=== PATIENT | male | born 1990 | race Caucasian/White ===

== ENCOUNTER → 2022-09-10 10:04 | Outpatient (BNVA) | payer MEDICAID, SELFPAY | PROVIDERS: PCP Internal Medicine; Visit Provider Urology | DX: L73.9 Follicular disorder, unspecified (principal); N52.9 Male erectile dysfunction, unspecified; R68.82 Decreased libido | CPT/HCPCS: 99202 ==

== ENCOUNTER 2023-02-14 08:59 | Outpatient (REF) | payer MEDICAID, SELFPAY ==
[2023-02-18 17:13] LABS: Testosterone, Free 72.1 pg/mL (35.0-155.0); Testosterone, Total 355 ng/dL (250-1100)
== END 2023-02-14 09:00 | disposition home or self-care (01) ==
LOC: HO.LAB 08:59
PROVIDERS: PCP Internal Medicine; Visit Provider Nurse Practitioner Family
DX: N52.9 Male erectile dysfunction, unspecified (principal); R68.82 Decreased libido
CPT/HCPCS: 36415; 84402; 84403

== ENCOUNTER 2023-02-28 13:48 | Outpatient (AMB) | payer MEDICAID, SELFPAY ==
--- NOTE | 2023-02-28 13:58 | A.OFFVIS_ITS ---
Intake Intake Visit Reasons: Testosterone(Lab?) Intake Note: Patient is present for erectile dysfunction/folliculitis/labs (testosterone 355) Urology Medication: folliculitis treated w/ doxycycline/ tadalafil Blood Thinner: none Lift Operator Required: No Accompanied by: Self / Same As Patient Allergies No Known Allergies Allergy (Verified 02/28/23 14:18) Medication List - Last Reconciled 02/28/23 by MAGALI AndersonP-BC dextroamphetamine-amphetamine 30 mg ER (Adderall XR) 1 cap PO QAM doxycycline hyclate 100 mg PO DAILY 90 days fenofibrate micronized 90 mg PO DAILY hydroxyzine HCl 10 - 20 mg PO BID PRN iloperidone (Fanapt) 8 mg PO DAILY iloperidone (Fanapt) 12 mg PO BEDTIME lorazepam 0.5 mg PO TID PRN olanzapine 2.5 mg PO BEDTIME propranolol ER 60 mg PO QAM tadalafil 5 mg PO DAILY 90 days HPI HPI Comments History of Present Illness Details García is a pleasant 32 year old male patient of . He has a past medical history of ADHD, drug induced pulmonary hypertension, obesity, schizophrenia, and sleep apnea. He presents to the office today for a follow up of his low libido and scrotal folliculitis. In discussion with the patient today he reports ongoing issues with numbness to his penis and scrotal area. He reports he has been working with his psychiatrist to switch his psychological medications as he believes these are contributing to his urological issues. He reports compliance with low-dose Cialis 5 mg daily and this has been working well for his low libido however continues with numbness to his penis and scrotum as mentioned above. He denies any issues with his urination. Recent testosterone results reviewed with the patient today 03/06-- total testosterone 355 free testosterone 72.1. During assessment of the patient today no folliculits noted in the area (penis, testicles, scrotum, perineum, and or bilateral groin area). Penis is circumcised and testicles/the scrotum within normal limits. No open areas, drainage, and or lesions noted. Patient does report being able to obtain and maintain his erections however feels at times he has issues with climax due to decreased sensation to this area. He discusses not currently being in a relationship. Discussed at length side effects of SSRIs in relation to urological issues patient is reporting. Patient discusses wanting to have workup for infertility as he is worried this will be an issue for him with his psychological medications he is taking however states he is unsure how he will proceed with workup when he does not have any form of ejaculate upon orgasm due to the side effects of his psych medications. Reassurance provided. Discussed and stressed at length SSRI medications can make it difficult to become arouse, sustain arousal, and reach orgasm. Discussed some individuals who take SSRIs are unable to have an orgasm at all. [facility] Medical History ADHD Drug-induced pulmonary hypertension Obesity Schizophrenia Sleep apnea Review of Systems Const Reports as per HPI Eyes Reports no additional complaints ENT Reports no additional complaints Card Reports as per HPI Resp Reports no additional complaints GI Reports no additional complaints Reports as per HPI Musc Reports no additional complaints Neuro Reports as per HPI Psych Reports as per HPI Endo Reports no additional complaints Syd/Lymph Reports no additional complaints Aller/Immun Reports no additional complaints Physical Exam Const General: cooperative, healthy appearing, comfortable, no acute distress, well developed, alert and awake Orientation/consciousness: patient oriented x3 Limitations: no limitations HEENT Head: Yes normal to inspection, Yes normocephalic and Yes atraumatic Eyes General: appearance normal, both eyes and all related structures Neck Neck: Yes normal visual inspection and Yes trachea midline Chest Chest palpation & inspection: normal inspection of the chest Cardio Rate: regular rate GI Inspection: Yes normal to inspection General: Yes no CVA tenderness Male General Exam: Yes normal external exam Penis: circumcised Meatus: meatus normal Scrotum: scrotum normal Testes: Testes normal Back/Spine/Pelvis Back: no CVA tenderness Skin General skin exam: no rashes or lesions noted Neuro General: patient oriented x3 Extrem General: Yes normal to inspection Psych Appearance: grossly normal Speech and movement: Clear speech present (at times slow to respond ) Affect: Other affect and mood findings present (flat; avoids eye contact ) Attitude: Avoids eye contact (attititude/behavior) Thought process: Perseverating thought process present Thought content: Normal thought content present Insight: Fair insight present (Psych) Judgement: Fair judgement present (Psych) Results AMB Urinalysis, Automated UA Leukoctes 0 [place]/uL Last Edit by Jb Neal on 02/28/23 14:18 UA Nitrite Negative Last Edit by Brandyce Bress on 02/28/23 14:18 UA Urobilinogen 0.2 mg/dL Last Edit by Brandyce Bress on 02/28/23 14:18 UA Protein 0 mg/dL Last Edit by Brandyce Bress on 02/28/23 14:18 UA pH 6.5 Last Edit by Brandyce [employer]ulse [employer] on 02/28/23 14:18 UA Blood 0 John/uL Last Edit by Brandyce [employer]ulse [employer] on 02/28/23 14:18 UA Specific [place] 1.005 Last Edit by [email or web address] [employer] on 02/28/23 14:18 UA Ketone Negative Last Edit by Elli Healthe [employer] on 02/28/23 14:18 UA Bilirubin 0 mg/dL Last Edit by Elli Healthe [employer] on 02/28/23 14:18 UA Glucose 0 mg/dL Last Edit by [email or web address] [email or web address] on 02/28/23 14:18 Results Reviewed Results Reviewed: Laboratory Last Values Urine pH (Auto) 6.5 02/28/23 14:00 Specific [place] (Auto) 1.005 02/28/23 14:00 Urine Protein (Auto) 0 mg/dL 02/28/23 14:00 Glucose (UA)(Auto) 0 mg/dL 02/28/23 14:00 Urine Ketones (Auto) Negative 02/28/23 14:00 Urine Blood (Auto) 0 John/uL 02/28/23 14:00 Urine Nitrite (Auto) Negative 02/28/23 14:00 Urine Bilirubin (Auto) 0 mg/dL 02/28/23 14:00 Urine Urobilinogen (Auto) 0.2 mg/dL 02/28/23 14:00 Leukocyte Esterase (Auto) 0 [place]/uL 02/28/23 14:00 Assessment & Plan Assessment & Plan (1) Low libido: Code(s): R68.82 - Decreased libido (2) Erectile dysfunction: Code(s): N52.9 - Male erectile dysfunction, unspecified (3) Retrograde ejaculation: Code(s): N53.14 - Retrograde ejaculation Plan In office urinalysis results reviewed with the patient today; as noted above. Recent testosterone and free testosterone results reviewed with the patient today Patient reports significant improvement in libido with 5 mg of Cialis daily; will continue Discussed at length effects of SSRI's in realtion to urological issues. Will obtain FSH, LH, prolactin, FSH BG, free T4, TSH, and testosterone free and total for further assessment and evaluation as patient continues to report issues with sensation (numb penis and testicles/scrotum) Will obtain scrotal ultrasound for further assessment and evaluation Follow up in 1-2 months with imaging and labs to be completed prior; or sooner with any issues, concerns, and or questions. Orders: Orders Follicle Stimulating Hormone 02/28/23 R68.82 - Decreased libido Lutenizing Hormone 02/28/23 R68.82 - Decreased libido Prolactin 02/28/23 R6.82 - Decreased libido Sex Hormone Binding Globulin 02/28/23 R6.82 - Decreased libido Free T4 (Free Thyroxine) 02/28/23 R6.82 - Decreased libido Testosterone, Free/Total 02/28/23 R6.82 - Decreased libido Thyroid Stimulating Hormone 02/28/23 R68.82 - Decreased libido TSH reflex Free T4 02/28/23 R68.82 - Decreased libido US scrotum 02/28/23 N52.9 - Male erectile dysfunction, unspecified, 8.82 - Decreased libido AMB Urinalysis Automated 02/28/23 Z13.9 - Encounter for screening, unspecified Coding Level of Care Code Est Pt Level 3 (69542) Diagnoses Low libido .82 Erectile dysfunction N52.9 Retrograde ejaculation N53.14
== END 2023-02-28 14:34 | disposition home or self-care (01) ==
PROVIDERS: Visit Provider Nurse Practitioner Family
DX: R68.82 Decreased libido (principal); N52.9 Male erectile dysfunction, unspecified; N53.14 Retrograde ejaculation
CPT/HCPCS: 99213

== ENCOUNTER → 2023-02-28 13:48 | Outpatient (BNVA) | payer MEDICAID, SELFPAY | PROVIDERS: Visit Provider Nurse Practitioner Family | DX: N52.9 Male erectile dysfunction, unspecified (principal); R68.82 Decreased libido; N53.14 Retrograde ejaculation | CPT/HCPCS: 99213 ==

== ENCOUNTER 2023-03-18 15:33 | Outpatient (REF) | payer MEDICAID, SELFPAY ==
--- NOTE | ~2023-03-18 | US_ITS ---
EXAMINATION: US SCROTUM CLINICAL INFORMATION: Decreased libido. COMPARISON: None available. TECHNIQUE: A sonogram of the scrotum was performed assessing mcdonnell-scale appearance and color Doppler flow. Spectral Doppler analysis of the arterial and venous flow were performed in the testes bilaterally. FINDINGS: RIGHT: Right testicle measures 4.2 x 2.5 x 2.4 cm, volume 13.4 mL. No focal testicular parenchymal lesions are visualized. Spectral Doppler analysis of the arterial and venous flow is normal in the right testis. Right epididymal head is normal in size. There are small epididymal head cysts versus spermatoceles, the largest measuring 5 mm. Right epididymal Doppler flow is normal. No right varicocele is seen. There is a very small hydrocele. LEFT: Left testicle measures 4.2 x 2.3 x 2.7 cm, volume 13.5 mL. No focal testicular parenchymal lesions are visualized. Spectral Doppler analysis of the arterial and venous flow is normal in the left testis. Left epididymal head is normal in size. There are 5 mm and 5 mm epididymal head cysts versus spermatoceles. Left epididymal Doppler flow is normal. No left varicocele is seen. There is a very small hydrocele. A 3 mm ovoid extratesticular calcification (scrotal mike) is seen. US/US scrotum IMPRESSION: 1. There are very small bilateral hydroceles. 2. A 3 mm left extratesticular calcifications (scrotal mike) is seen. 3. There are small bilateral epididymal head cysts versus spermatoceles.
== END 2023-03-18 15:34 | disposition home or self-care (01) ==
LOC: HO.US 15:33
PROVIDERS: Visit Provider Nurse Practitioner Family
DX: N52.9 Male erectile dysfunction, unspecified (principal); R68.82 Decreased libido
CPT/HCPCS: 76870

== ENCOUNTER 2023-06-20 10:04 | Outpatient (REF) | payer MEDICAID, SELFPAY ==
[2023-06-20 11:31] LABS: MANUAL DIFF FLAG NO
[2023-06-20 11:38] LABS: Basophils Absolute Auto 0.1 X10*3/uL (0.0-0.2); Basophils Percent Auto 0.9 % (0-2); Eosinophils Absolute Auto 0.3 X10*3/uL (0.0-0.4); Eosinophils Percent Auto 4.2 % (0-4); Hemoglobin 15.8 g/dl (14.0-18.0); Imm Gran Abs Auto 0.02 X10*3/uL (0.00-0.03); Imm Gran Pct Auto 0.3 % (0.0-0.4); Lymphocytes Absolute Auto 1.6 X10*3/uL (1.2-4.9); Lymphocytes Percent Auto 23.4 % (20-40); Mean Corpuscular HGB Conc 33.6 g/dl (31.0-36.0); Mean Corpuscular Hemoglobin 28.5 pg (27.0-33.0); Mean Corpuscular Volume 84.8 fL (80.0-98.0); Mean Platelet Volume 9.8 fL (9.4-12.4); Monocytes Absolute Auto 0.5 X10*3/uL (0.1-1.2); Monocytes Percent Auto 7.9 % (2-11); Neutrophils Absolute Auto 4.3 x10*3/uL (2.0-8.3); Neutrophils Percent Auto 63.3 % (45-73); Platelet Count 320 X10*3/uL (160-400); Red Blood Count 5.54 X10*6/uL (4.60-5.80); Red Cell Distribution Width 12.4 % (11.0-16.0); White Blood Count 6.8 X10*3/uL (4.8-10.8)
[2023-06-20 11:42] LABS: Estimated Average Glucose 94 mg/dL; Hemoglobin A1c % 4.9 % (<6.0)
[2023-06-20 12:11] LABS: Alanine Aminotransferase 22 U/L (0-40); Albumin Level 4.3 g/dL (3.5-5.0); Alkaline Phosphatase 52 U/L (39-117); Anion Gap 11 (12-20); Aspartate Amino Transferase 19 U/L (5-37); Bilirubin Direct 0.2 mg/dL (0.0-0.5); Bilirubin Total 0.6 mg/dL (0.0-1.0); Blood Urea Nitrogen 12 mg/dL (9-16); Calcium 9.1 mg/dL (8.4-10.2); Carbon Dioxide 27 mmol/L (22-29); Chloride 106 mmol/L (96-108); Cholesterol 185 mg/dL (<200); Estimated Glomerular Filt Rate > 60; Glucose Random 90 mg/dL (60-115); HDL Cholesterol 40 mg/dL (>40); LDL Cholesterol Calculated 103 mg/dL (<100); Potassium 4.1 mmol/L (3.3-5.1); Sodium 140 mmol/L (135-145); Total Protein 6.7 g/dL (6.5-8.0); Triglycerides 213 mg/dL (<150); Vitamin D 25-OH Total 84.2 ng/mL (>30)
== END 2023-06-20 10:05 | disposition home or self-care (01) ==
LOC: HO.HHCL 10:04
PROVIDERS: Visit Provider Internal Medicine
DX: Z00.00 Encounter for general adult medical examination without abnormal findings (principal)
CPT/HCPCS: 36415; 80048; 80061; 80076; 82306; 83036; 85025

== ENCOUNTER 2024-06-25 16:14 | Outpatient (REF) | payer MEDICAID, SELFPAY ==
[2024-06-25 17:17] LABS: MANUAL DIFF FLAG NO
[2024-06-25 17:33] LABS: Basophils Absolute Auto 0.1 X10*3/uL (0.0-0.2); Basophils Percent Auto 0.8 % (0-2); Eosinophils Absolute Auto 0.5 X10*3/uL (0.0-0.4); Eosinophils Percent Auto 5.2 % (0-4); Hematocrit 45.1 % (42.0-52.0); Imm Gran Abs Auto 0.03 X10*3/uL (0.00-0.03); Imm Gran Pct Auto 0.3 % (0.0-0.4); Mean Corpuscular HGB Conc 35.5 g/dl (31.0-36.0); Mean Corpuscular Hemoglobin 29.1 pg (27.0-33.0); Mean Corpuscular Volume 82.1 fL (80.0-98.0); Mean Platelet Volume 9.8 fL (9.4-12.4); Monocytes Absolute Auto 0.8 X10*3/uL (0.1-1.2); Monocytes Percent Auto 8.5 % (2-11); Neutrophils Absolute Auto 5.6 x10*3/uL (2.0-8.3); Neutrophils Percent Auto 63.2 % (45-73); Platelet Count 314 X10*3/uL (160-400); Red Blood Count 5.49 X10*6/uL (4.60-5.80); Red Cell Distribution Width 12.2 % (11.0-16.0); White Blood Count 8.9 X10*3/uL (4.8-10.8)
[2024-06-25 17:36] LABS: Alanine Aminotransferase 42 U/L (0-40); Albumin Level 4.2 g/dL (3.5-5.0); Alkaline Phosphatase 41 U/L (39-117); Anion Gap 9 (12-20); Aspartate Amino Transferase 49 U/L (5-37); Bilirubin Total 0.6 mg/dL (0.0-1.0); Blood Urea Nitrogen 13 mg/dL (9-16); Calcium 9.4 mg/dL (8.4-10.2); Carbon Dioxide 27 mmol/L (22-29); Chloride 107 mmol/L (96-108); Cholesterol 201 mg/dL (<200); Estimated Glomerular Filt Rate > 60; Glucose Random 100 mg/dL (60-115); HDL Cholesterol 32 mg/dL (>40); Potassium 3.9 mmol/L (3.3-5.1); Sodium 139 mmol/L (135-145); Total Protein 6.7 g/dL (6.5-8.0); Triglycerides 501 mg/dL (<150)
[2024-06-26 08:25] LABS: HIV AB/AG Nonreactive (Nonreactive); HIV Num 1 0.06 S/CO (0.00-0.99); ~HepC Num1 0.11 S/CO (0.00-0.79); ~Hepatitis C Antibody Nonreactive (Nonreactive)
== END 2024-06-25 16:15 | disposition home or self-care (01) ==
LOC: HO.HHCL 16:14
PROVIDERS: Visit Provider Internal Medicine
DX: Z00.00 Encounter for general adult medical examination without abnormal findings (principal)
CPT/HCPCS: 36415; 80053; 80061; 85025; 86803; 87389

== ENCOUNTER 2024-11-16 14:39 | Outpatient (REF) | payer MEDICAID, SELFPAY ==
--- OUTSIDE RECORDS SUMMARY | 2024-11-16 16:13 | XMS_ITS | Encounter Summary ---
Author Organization [facility] Address [address] [place] [address] Phone Care Team Providers Care Registered Dietitian Name Role Phone Name, Mich JONES Primary Care Provider [phone] Encounter Details Date Type Department Care Team (Late st Contact Info) Description 09/30/2024 Transcribe Orders [facility] [address] [place], [place] [id number] Carmen Catalan, JAREK [address] [place] [address] Decreased libido (Primary Dx) Social History Tobacco Use Types Packs/Day Years Used Date Smoking Tobacco: Never Assessed Education Answer Date Recorded Are you interested in more education? Not on ange e 09/30/2024 Are you concerned about learning? Not on file 09/30/2024 No 09/30/2024 No 09/30/2024 Digital Access Answer Date Recorded No 09/30/2024 No 09/30/2024 Reliable internet access at home? Not on file 09/30/2024 Device with a working camera? Not on file Sex and Gender Information Value Date Recorded Sex Assigned at Not on file Gender Identity Not on file Sexual Orientation Not on file documented as of this encounter Plan of Treatment Pending Results Name Type Priority Associated Diagnoses Date /Time Testosterone, total and free Lab Routine Decreased libido 09/30/2024 12:46 PM EST documented as of this encounter Results * (ABNORMAL) TSH with reflex (09/30/2024 12:46 PM EST) SCREENING PANEL: TSH 0.52(L) 0.55 - 4.78 uIU/mL [facility] Blood 09/30/2024 12:4 6 PM EST 09/30/2024 12:54 PM EST Carmen Catalan [facility] LAB BLOOD ORDERABLES Performing Organization Address City/[facility]/ZIP Co de Phone Number [facility] [address] [place] [address] * (ABNORMAL) Sex hormone binding globulin (09/30/2024 12:46 PM EST) SEX HORMONE BIND GLOB 11.9(L) 13.3 - 89.5 nmol/L [facility] [address] Blood 09/30/2024 12:4 6 PM EST 09/30/2024 12:54 PM EST Carmen Catalan [employer]T[facility] LAB BLOOD ORDERABLES Performing Organization Address [facility] Co mt Phone Number [facility] [place] [address] * Prolactin (09/30/2024 12:46 PM EST) PROLACTIN 7.2 2.1 - 17.7 ng/mL [facility] Blood 09/30/2024 12:4 6 PM EST 09/30/2024 12:54 PM EST Carmen Catalan [employer] LAB BLOOD ORDERABLES Performing Organization Address City/[facility] Co de Phone Number [facility] [address] [place] [address] * LH (09/30/2024 12:46 PM EST) LH 3.5 1.5 - 9.3 IU/L [facility] Blood 09/30/2024 12:4 6 PM EST 09/30/2024 12:54 PM EST Carmen Catalan [employer] LAB BLOOD ORDERABLES Performing Organization Address City/[facility] Co de Phone Number [facility] [address] [place] [address] * Free T4 (09/30/2024 12:46 PM EST) FREE T4 1.3 0.9 - 1.8 ng/dL [facility] Blood 09/30/2024 12:4 6 PM EST 09/30/2024 12:54 PM EST Carmen Catalan [employer] [employer] LAB BLOOD ORDERABLES Performing Organization Address City/[facility] Co de Phone Number [facility] [address] [place] [address] * FSH (09/30/2024 12:46 PM EST) FSH 3.3 1.4 - 18.4 IU/L [facility] Blood 09/30/2024 12:4 6 PM EST 09/30/2024 12:54 PM EST Carmen Catalan [facility] LAB BLOOD ORDERABLES Performing Organization Address [facility] Co de Phone Number [facility] [address] [place] [address] documented in this encounter Visit Diagnoses Diagnosis Decreased libido- Primary documented in this encounter Care Teams Registered Dietitian Relationship Specialty Start Date End Date Name, MD Mich [address] [place] [address] PCP - General 05/31/17 documented as of this encounter Additional Source Comments The information contained in this document represents components of the legal health record. It is not the complete legal health record.[facility]
--- OUTSIDE RECORDS SUMMARY | 2024-11-16 16:13 | XMS_ITS | Encounter Summary ---
Author Organization [employer] Address [address] [place] [address] [address] [place] [address] Care Team Providers Care Director Of Pulmonary Unit Name Role Phone Yazmin Boston MD Primary Care Provide r Reason for Referral * Consultation (Routine) - Authorized Specialty Diagnoses / Procedures Referred By Contac t Referred To Contact Nutrition Diagnoses Hypertriglyceridemia Class 1 obesity due to excess calories without serious comorbidity with body mass index (BMI) of 34.0 to 34.9 in adult Yazmin Boston MD [address] [place] [address] Phone: tel: fax: Referral ID Status Reason Start Date Expiration Date Visits Requested Visits Authorized [id number] Authorized Consult and Treat 11/16/2024 11/16/2025 1 1 Reason for Visit * Reason Comments Follow-up Encounter Details Date Type Department Care Team (Latest Contact Info) Description 11/16/2024 2:00 PM EDT Office Visit [facility] [address] [place] [address] [phone] Yazmin Boston MD [address] [place] [address] [phone] Hypertriglyceridemia (Primary Dx); Class 1 obesity due to excess calories without serious comorbidity with body mass index (BMI) of 34.0 to 34.9 in adult; Bloating Social History Tobacco Use Types Packs/Day Years Used Date Smoking Tobacco: Never Passive Smoke Exposure: Never Smokeless Tobacco: Never Tobacco Cessation:Counseling Given: Not Answered Alcohol Use Standard Drinks/Week Comments Yes 0 (1 standard drink = 0.6 oz pur e alcohol) Socially Depression Answer Date Recorded Patient Health Questionnaire-9 Score 18 06/28/2024 Patient Health Questionnaire-9 Score 18 06/28/2024 Last PHQ-9: Questionnaire Data Not on file 1 08/28/2023 Housing Stability Answer Date Recorded What is your housing situation today? I have elayne erin 06/15/[address] you li ve. Do you have problems with any of the following? None of the above 06/15/2024 Food Insecurity Answer Date Recorded Within the past 12 months, y ou worried that your food would run out before you got money to buy more: Never True 06/15/2024 Within the past 12 months,th e food you bought just didn't last and you didn't have enough money to get more: Never True 08/2023 Transportation Answer Date Recorded In the past 12 months, has l ack of transportation kept you from medical appts, meetings, work or from getting things needed for daily living? No 06/15/2024 Utilities Answer Date Recorded In the past 12 months, has t he electric, gas, oil or water company threatened to shut off services in your home? No 06/15/2024 Depression Answer Date Recorded Patient Health Questionnaire-2 Score 5 06/28/2024 Internet Access Answer Date Recorded Internet Access Q1 Yes 06/15/2024 Internet Access Q2 Not on file 06/15/2024 Sex and Gender Information Value Date Recorded Sex Assigned at Male 06/14/2022 10:35 AM EDT Legal Sex Male 10:35 AM EDT Gender Identity Male 06/14/2022 10:35 AM EDT Sexual Orientation Straight 06/17/2023 3: 41 PM EDT documented as of this encounter Last Filed Vital Signs Vital Sign Reading Time Taken Comments Blood Pressure 139/86 11/16/2024 2:13 PM EDT Pulse 95 11/16/2024 2:13 PM EDT Temperature 36.2 ??C (97.1 ??F) 11/16/2024 2:13 PM ED T Respiratory Rate 16 11/16/2024 2:13 PM EDT Oxygen Saturation 97% 11/16/2024 2:13 PM EDT Inhaled Oxygen Concentration - - Weight 109 kg (240 lb) 11/16/2024 2:13 PM EDT Height 177.8 cm (5' 10 ) 11/16/2024 2:13 PM EDT Body Mass Index 34.44 11/16/2024 2:13 PM EDT documented in this encounter Plan of Treatment Scheduled Orders Name Type Priority Associated Diagnoses Orde r Schedule TSH W/Reflex to FT4 Lab Routine Class 1 obesity due to excess calories without serious comorbidity with body mass index (BMI) of 34.0 to 34.9 in adult Expected: 11/16/2024 (Approximate), Expires: 11/16/2025 Comprehensive Metabolic Panel Lab Routine Hypertriglyceridemia Class 1 obesity due to excess calories without serious comorbidity with body mass index (BMI) of 34.0 to 34.9 in adult Expected: 11/16/2024 (Approximate), Expires: 11/16/2025 Lipid Panel, Standard Lab Routine Hypertriglyceridemia Class 1 obesity due to excess calories without serious comorbidity with body mass index (BMI) of 34.0 to 34.9 in adult Expected: 11/16/2024 (Approximate), Expires: 11/16/2025 Scheduled Referrals Name Type Priority Associated Diagnoses Orde r Schedule Referral to Nutrition Therapy Outpatient Referral Routine Hypertriglyceridemia Class 1 obesity due to excess calories without serious comorbidity with body mass index (BMI) of 34.0 to 34.9 in adult Expected: 11/16/2024 (Approximate), Expires: 11/16/2025 documented as of this encounter Visit Diagnoses Diagnosis Hypertriglyceridemia- Primary Pure hyperglyceridemia Class 1 obesity due to excess calories without serious comorbidity with body mass index (BMI) of 34.0 to 34.9 in adult Bloating Flatulence, eructation, and gas pain documented in this encounter Additional Health Concerns Assessment Noted Time PHQ-9 Depression Total Score: 18 06/28/ 024 11:27 AM EST documented as of this encounter Care Teams Director Of Pulmonary Unit Relationship Specialty Start Date End Date Yazmin Boston MD [address] [place] [phone] PCP - General Family Medicine 07/19/19 documented as of this encounter
--- OUTSIDE RECORDS SUMMARY | 2024-11-16 16:13 | XMS_ITS | Clinical Summary ---
Author Organization [employer] Address [address] [place] [address] 7 [place] [address] Care Team Providers Care Logistics Operations Manager Name Role Phone Yazmin Boston MD Primary Care Provide r Allergies No known active allergies Medications Adderall XR 30 MG 24 hr capsule TAKE 1 CAPSULE BY MOUTH EVERY MORNING FOR ADD 12/23/19 23 Active cholecalcifero l (Vitamin D-3) 125 MCG (5000 UT) capsule Take 125 mcg by mouth in the morning. 11/25/19 23 Active hydrOXYzine HCl (Atarax) 10 MG tablet TAKE 1-2 TABLETS BY MOUTH TWICE A DAY NEEDED FOR ANXIETY 11/14/19 23 Active Fanapt 12 MG tablet Take 12 mg by mouth at bedtime. 11/30/19 23 Active Fanapt 8 MG tablet Take 8 mg by mouth in the morning. 12/15/19 23 Active LORazepam (Ativan) 0.5 MG tablet Take 0.5 mg by mouth if needed in the morning, at noon, and at bedtime. 11/24/19 23 Active OLANZapine (ZyPREXA) 2.5 MG tablet Take 1 tablet by mouth at bedtime. 10/20/19 23 Active propranolol LA (Inderal LA) 60 MG 24 hr capsule TAKE 1 CAPSULE BY MOUTH EVERY DAY IN THE MORNING 12/22/19 23 Active tadalafil (Cialis) 5 MG tablet TAKE 1 TABLET BY MOUTH ONCE DAILY FOR SEXUAL ACTIVITY 12/23/19 23 Active Blood Pressure Monitor kit Use as directed 3x/week 1 kit 01/05/20 23 Active fenofibrate micronized (Antara) 43 MG capsuleIndicat ions:Hypertrig lyceridemia Take 1 capsule (43 mg) by mouth with breakfast. 30 capsule 3 11/17/19 25 026 Active simethicone (Mylicon,Gas-X ) 180 MG capsuleIndicat ions:Bloating Take 1 capsule (180 mg) by mouth every 6 (six) hours if needed for flatulence. 180 capsule 11/17/19 25 Active famotidine (Pepcid) 20 MG tabletIndicati ons:Bloating Take 1 tablet (20 mg) by mouth 2 times daily. 60 tablet 1 11/17/19 25 026 Active fenofibrate micronized (Antara) 43 MG capsuleIndicat ions:Hypertrig lyceridemia Take 1 capsule (43 mg) by mouth with breakfast. 30 capsule 11 06/26/20 24 025 Discontinued(Re order (will not trigger notification to Pharmacy)) Active Problems Problem Noted Date Diagnosed Date Class 1 obesity due to exces s calories without serious comorbidity with body mass index (BMI) of 34.0 to 34.9 in adult 11/16/2024 Bloating 11/16/2024 Dermatitis 08/02/2024 Elevated LFTs 08/02/2024 Assessment & Plan (08/02/2024 3:07 PM EST): Hepatic panel will be recheck in 3-6 months after healthy diet and exercise is done On combination antipsychotic drug therapy 2023 Assessment & Plan (06/25/2024 5:29 PM EST): EKG ordered to monitor Qtc Encounter for preventive care 06/20/2023 Assessment & Plan (06/25/2024 5:28 PM EST): See HPI Sexual dysfunction 03/02/2023 Schizophrenia 03/02/2023 Assessment & Plan (06/20/2023 10:02 AM EST): Continue to follow up with psychiatrist Assessment & Plan (03/07/2023 10:29 AM EDT): Continue to follow with specialists Obstructive sleep apnea syndrome 03/02/2023 Folliculitis 03/02/2023 Assessment & Plan (06/25/2024 5:28 PM EST): Referral to dermatology as per patient's request Doxycycline 100mg BID Drug-induced hypotension 03/02/2023 Amnesia 03/02/2023 Adult attention deficit hyperactivity disorder 0 03/02/2023 Elevated blood-pressure read ing without diagnosis of hypertension 01/04/2023 Assessment & Plan (03/07/2023 10:29 AM EDT): Resolved Patient encourage to continue losing weight and low Na diet Anxiety 01/04/2023 Assessment & Plan (06/25/2024 5:28 PM EST): Counseling done f/u with specialist Assessment & Plan (03/07/2023 10:29 AM EDT): Controlled followed by specialist Atypical chest pain 01/04/2023 Hypertriglyceridemia 07/05/2021 Assessment & Plan (08/02/2024 3:08 PM EST): Fenofibrate 43mg daily re-started Counseling about healthy diet done Assessment & Plan (06/25/2024 5:29 PM EST): Today extensive discussion was done about life style modifications I advise healthy diet (low calorie) and cardiovascular exercise Lipid panel ordered currently not on fenofibrate Assessment & Plan (2023 3:57 PM EST): Today extensive discussion was done about life style modifications I advise healthy diet (low calorie) and cardiovascular exercise Patient was not able to fill his prescription I will send a different presentation today of fenofibrate Assessment & Plan (06/20/2023 10:02 AM EST): Lipid panel ordered today, labs will be review with patient on next appointment discussion was done about life style modifications I advise healthy diet (low calorie) and cardiovascular exercise Assessment & Plan (03/07/2023 10:30 AM EDT): fenofibrate renewed Today extensive discussion was done about life style modifications I advise healthy diet (low calorie) and cardiovascular exercise Overweight 12/26/2018 Other specified types of schizophrenia, unspecif ied state 12/26/2018 Attention deficit hyperactivity disorder 019 Encounters Date Type Department Care Team Description 11/16/2024 2:00 PM EDT Office Visit [facility] [address] [place] [phone] Yazmin Boston MD Hypertriglyceridemia (Primary Dx); Class 1 obesity due to excess calories without serious comorbidity with body mass index (BMI) of 34.0 to 34.9 in adult; Bloating 11/16/2024 Travel 11/08/2024 Patient Outreach [facility] [address] [place] [address] Yazmin Boston MD Pre-visit Planning (SDOH screening negative and tobacco screening negative) 10/31/[address] [address] Lucy Murdock RN NTTS f/up 10/26/2024 Population Health Risk Score [facility] Department [address] [phone] Provider, Population Health Generic 10/05/2024 Telephone [facility] [address] [place] [phone] Yazmin Boston MD NTTS 08/20/[address] [address] Cammy Marion, RN NTTS from Last 3 Months Immunizations Name Administration Dates Next Due Hep B Immune Globulin 03/29/2023 Hep B, adult 03/29/2023 Influenza Injectable Quadriv alant Preservative Free IIV4 MDCK 05/01/2022,05/15/2020 Influenza injectable quadriv alent preservative free 06/18/2021,05/12/2018 Influenza, seasonal, injecta ble, preservative free 06/25/2024 Pfizer Covid-19 Vaccine 12+ 06/25/2024,1 ,09/27/2020,2020 Tdap 06/20/2017 Social History Tobacco Use Types Packs/Day Years [...] your housing situation today? I have elayne khan 06/15/[address] you li [...] Orientation Straight 06/17/2023 3: 41 PM EDT Last Filed Vital Signs Vital Sign Reading [...] Mass Index 34.44 11/16/2024 2:13 PM EDT Plan of Treatment Health Maintenance Due Date Last Done Comments Alcohol/Substance Use Screening 2001 Family Planning (PISQ) 2004 Hepatitis B Vaccines (2 of 3 - 19+ 3-dose series) 04/26/2023 03/29/2023 Depression Monitoring (PHQ-9) 12/26/2024 06/28/2024, 06/28/2024 Depression Screening 06/28/2025 06/28/2024, 06/28/20 24 SDOH Screening 11/08/2025 11/08/2024 Tobacco Screening 11/16/2025 11/16/2024 DTaP/Tdap/Td Vaccines (2 - Td or Tdap) 06/20/2027 06/20/2017 Lipid Panel 06/25/2029 06/25/2024, 01/2023, 05/06/2022, Additional history exists Zoster Vaccines (1 of 2) 2039 RSV Patients and Patients Aged 60 years or older (1 - 1-dose 75+ series) 2064 COVID-19 Vaccine Completed 06/25/2024, 08/2022, 05/25/2022, Additional history exists HIV Screening Completed 06/25/2024 Hepatitis C Screening Completed 06/25/2024 Influenza Vaccine Completed 06/25/2024, , 05/01/2022, Additional history exists HIB Vaccines Aged Out No longer eligi ble based on patient's age to complete this topic HPV Vaccines Aged Out No longer eligi ble based on patient's age to complete this topic Hepatitis A Vaccines Aged Out No long er eligible based on patient's age to complete this topic IPV Vaccines Aged Out No longer eligi ble based on patient's age to complete this topic Meningococcal Vaccine Aged Out No rosas luzma eligible based on patient's age to complete this topic Pneumococcal Vaccine: Pediatrics (0 to 5 Years) and At-Risk Patients (6 to 49) Years) Aged Out No longer eligible based on patient's age to complete this topic RSV under 20 months Aged Out No longe r eligible based on patient's age to complete this topic Rotavirus Vaccines Aged Out No longer eligible based on patient's age to complete this topic Procedures Procedure Name Priority Date/Time Associated Diagnosis Comments HEPATITIS C AB W/REFL TO HCV RNA, QN, PCR Routine 06/25/2024 4:15 PM EST Encounter for preventive care HIV 1/2 ANTIGEN/ANTIBODY, FOURTH GENERATION W/RFL Routine 06/25/2024 4:15 PM EST Encounter for preventive care LIPID PANEL, STANDARD Routine 06/25/2024 4:15 PM EST Encounter for preventive care from Last 3 Months or Most Recently Relevant to Health Maintenance Results * Hepatitis C Antibody with Reflex to HCV, RNA, Quantitative, Real-Time PCR (06/25/2024 4:15 PM EST) Hepatitis C Antibody Nonreactive Nonreactive [facility] Comment:Antibodies to HCV no t detected; does not exclude early acuteHCV infection. Blood Venous blood specimen / Unknown 06/25/2024 4:15 PM EST 06/25/2024 5:12 PM EST us Yazmin Chaparro MD LAB BLOOD ORDERABLES Final Result [facility] [address] [place] [phone] * HIV-1/2 Antigen and Antibodies, Fourth Generation, with Reflexes (06/25/2024 4:15 PM EST) HIV AB/AG Nonreactive Nonreactive [facility] Comment:HIV-1 p24 Ag and/or HIV-1/HIV-2 Ab not detected.A test result that is nonreactive does not exclude thepossibility of exposure to or infection with HIV-1 and/orHIV-2. Nonreactive results in this assay for individualswith prior exposure to HIV-1 and/or HIV-2 may be due toantigen and antibody levels that are below the limit ofdetection of this assay.The MyEdu HIV Ag/Ab Combo assay result andsupplemental assay results should be interpreted inconjunction with the patient's clinical presentation,history and other laboratory results. If the results areinconsistent with clinical evidence, additional testing issuggested to confirm the result. Blood Venous blood specimen / Unknown 06/25/2024 4:15 PM EST 06/25/2024 5:12 PM EST us Yazmin Chaparro MD LAB BLOOD ORDERABLES Final Result [facility] [address] [place] [phone] * (ABNORMAL) Lipid Panel, Standard (06/25/2024 4:15 PM EST) Triglycerides 501(H) <150 mg/dL [facility] Comment:Desirable Triglyceri de: less than 150 mg/dLBorderline High Triglyceride 150-199 mg/dLHigh Triglyceride: 200-499 mg/dLVery High Triglyceride: greater than or equal to 5OO mg/dL Cholesterol 201(H) <200 mg/dL [facility] Comment:Desirable Cholestero l: less than 200 mg/dLBorderline High Cholesterol: 200-239 mg/dLHigh Cholesterol: greater than 239 mg/dL LDL Cholesterol Calculated TNP <100 mg/dL [facility] Comment:Unable to calculate the LDL. The formula of Friedwald,Lewis, and Feroz is only valid if the triglycerides areless than 400 mg/dl. HDL Cholesterol 32(L) >40 mg/dL [facility] Comment:Desirable HDL: great er than 40 mg/dL Note: This HDL assay may give artificially low results in patients with liver disease. Blood Venous blood specimen / Unknown 06/25/2024 4:15 PM EST 06/25/2024 5:12 PM EST us Yazmin Chaparro MD LAB BLOOD ORDERABLES Final Result [facility] [address] [place] [phone] from Last 3 Months or Most Recently Relevant to Health Maintenance Insurance [facility] C3 HSN FULL Care Teams Logistics Operations Manager Relationship Specialty Start Date End Date Yazmin Boston MD [address] [place] [phone] PCP - General Family Medicine 07/19/19
--- OUTSIDE RECORDS SUMMARY | 2024-11-16 16:13 | XMS_ITS | Clinical Summary ---
Author Organization [facility] [email or web address] [facility] lin Address [address] [facility] [employer] [address] Care Team Providers Care Care Clinician Name Role Phone Unavailable Primary Care Provider Unavailabl e Social History Tobacco Use Types Packs/Day Years Used Date Smoking Tobacco: Never Assessed Sex and Gender Information Value Date Recorded Sex Assigned at Not on file Legal Sex Male 8:39 PM EDT Gender Identity Not on file Sexual Orientation Not on file Plan of Treatment Health Maintenance Due Date Last Done Comments Depression: Screening Annual ly using PHQ-2/9 in Adults 18 yrs or above (or HM Modifier)([facility]) 1989 Hepatitis C Virus Infection in Adolescents and Adults: Screening (or Modifier) ([facility]) 2007 SDOH Screening Reminder: Jhoana tashalljuanita for all adults ([facility]) 2007 Tobacco Smoking Cessation: i n Adults excluding Women: Behavioral and Pharmacotherapy Interventions ([facility]) 2007 DTaP/Tdap/Td Vaccines ([facility]) (1 - Tdap) 2008 Lipid Screening: Once for Me n aged 20 to 35 yrs ([facility]) 2009 COVID-19 Vaccine Screening: Initial Series and Booster Status ([facility]) ( - 2023- season) 2024 Flu Vaccination: Yearly for ages 18mos through 64 years (or Modifier)([facility]) 03/15/2025 Zoster/Shingles Vaccine Seri es Screening: Adults aged 18+ yrs (or HM Modifiers)([facility]) (1 of 2) 2039 Pneumococcal Vaccination Scr eening: Pts 0-19 & 19-49 yrs of age ([facility]) Aged Out No longer eligible based on patient's age to complete this topic [employer] Not on file Insurance [facility]
--- OUTSIDE RECORDS SUMMARY | 2024-11-16 16:13 | XMS_ITS | Encounter Summary ---
Author Organization [employer] Address [address] [place] [address] 7 [place] [address] Care Team Providers Care Speech Language Therapist Name Role Phone Yazmin Boston MD Primary Care Provide r Encounter Details Date Type Department Care Team (Latest Contact Info) Description 03/18/2023 Orders Only [facility] [address] [place], [place] [phone] Yazmin Boston MD [address] [place] [address] Hypertriglyceridemia (Primary Dx) Social History Tobacco Use Types Packs/Day Years Used Date Smoking Tobacco: Never Passive Smoke Exposure: Never Smokeless Tobacco: Never Depression Answer Date Recorded Patient Health Questionnaire-9 Score 0 03/07/2023 Depression Answer Date Recorded Patient Health Questionnaire-2 Score 0 03/07/2023 Sex and Gender Information Value Date Recorded Sex Assigned at Male 06/14/2022 10:35 AM EDT Legal Sex Male 10:35 AM EDT Gender Identity Male 06/14/2022 10:35 AM EDT Sexual Orientation Straight 06/17/2023 3: 41 PM EDT documented as of this encounter Plan of Treatment Not on file documented as of this encounter Visit Diagnoses Diagnosis Hypertriglyceridemia- Primary Pure hyperglyceridemia documented in this encounter Additional Health Concerns Assessment Noted Time PHQ-9 Depression Total Score: 0 03/07/20 9:52 AM EDT documented as of this encounter Care Teams Speech Language Therapist Relationship Specialty Start Date End Date Yazmin Boston MD [address] [place] [phone] PCP - General Family Medicine 07/19/19 documented as of this encounter
--- OUTSIDE RECORDS SUMMARY | 2024-11-16 16:13 | XMS_ITS | Clinical Summary ---
Author Organization [facility] Address [address] [place] [phone] Phone Care Team Providers Care Picker Feeder Name Role Phone Name, Mich JONES Primary Care Provider [phone] Encounters Date Type Department Care Team Description 09/30/2024 12:27 PM EST - 09/30/2024 11:59 PM EST Hospital Encounter [facility] [address] [place] [address] Carmen Catalan NP Discharge Disposition: Home or Self Care 09/30/2024 Transcribe Orders [facility] [address] [place] [address] Carmen Catalan NP Decreased libido (Primary Dx) from Last 3 Months Social History Tobacco Use Types Packs/Day Years [...] on file Sexual Orientation Not on file Last Filed Vital Signs Vital Sign Reading Time Taken Comments Blood Pressure 124/68 04/18/2015 1:03 AM EDT Pulse 113 04/18/2015 1:03 AM EDT Temperature 36.3 ??C (97.3 ??F) 04/18/2015 1:03 AM ED T Respiratory Rate - - Oxygen Saturation - - Inhaled Oxygen Concentration - - Weight 97.6 kg (215 lb 3.2 oz) 04/18/2015 1:03 A M EDT Height 180.3 cm (5' 11 ) 04/18/2015 1:03 AM EDT Body Mass Index 30.01 04/18/2015 1:03 AM EDT Plan of Treatment Not on file [employer] Devices Not on file Procedures Procedure Name Priority Date/Time Associated Diagnosis Comments TSH WITH REFLEX Routine 09/30/2024 12:46 PM EST Decreased libido TESTOSTERONE, TOTAL AND FREE Routine 09/30/2024 12:46 PM EST Decreased libido SEX HORMONE BINDING GLOBULIN Routine 09/30/2024 12:46 PM EST Decreased libido PROLACTIN Routine 09/30/2024 12:46 PM EST Decreased libido LH Routine 09/30/2024 12:46 PM EST Decreased libido FREE T4 Routine 09/30/2024 12:46 PM EST Decreased libido FSH Routine 09/30/2024 12:46 PM EST Decreased libido from Last 3 Months Results * (ABNORMAL) Sex hormone binding globulin (09/30/2024 12:46 PM EST) Pathologist [facility] SEX HORMONE BIND GLOB 11.9(L) 13.3 - 89.5 nmol/L [facility] Blood 09/30/2024 12:4 6 PM EST 09/30/2024 12:54 PM EST Carmen Catalan [facility] BLOOD ORDERABLES [facility] [address] [place] [address] * (ABNORMAL) TSH with reflex (09/30/2024 12:46 PM EST) Pathologist [facility] SCREENING PANEL: TSH 0.52(L) 0.55 - 4.78 uIU/mL [facility] Blood 09/30/2024 12:4 6 PM EST 09/30/2024 12:54 PM EST Carmen Catalan [facility] BLOOD ORDERABLES Performing Organization Address City/[facility] Co de Phone Number [facility] [address] [place] [address] * Prolactin (09/30/2024 12:46 PM EST) PROLACTIN 7.2 2.1 - 17.7 ng/mL [facility] Blood 09/30/2024 12:4 6 PM EST 09/30/2024 12:54 PM EST Carmen Catalan [facility] BLOOD ORDERABLES Performing Organization Address [facility] de Phone Number [facility] [address] [place] [address] * Free T4 (09/30/2024 12:46 PM EST) FREE T4 1.3 0.9 - 1.8 ng/dL [facility] Blood 09/30/2024 12:4 6 PM EST 09/30/2024 12:54 PM EST Carmen Catalan [facility] BLOOD ORDERABLES Performing Organization Address [facility] de Phone Number [facility] [address] [place] [address] * LH (09/30/2024 12:46 PM EST) LH 3.5 1.5 - 9.3 IU/L [facility] Blood 09/30/2024 12:4 6 PM EST 09/30/2024 12:54 PM EST Carmen Catalan [facility] BLOOD ORDERABLES Performing Organization Address [facility] Co de Phone Number [facility] [address] [place] [address] * FSH (09/30/2024 12:46 PM EST) FSH 3.3 1.4 - 18.4 IU/L [facility] Blood 09/30/2024 12:4 6 PM EST 09/30/2024 12:54 PM EST Carmen Catalan [facility] BLOOD ORDERABLES Performing Organization Address City/State/[facility] Co de Phone Number [facility] [address] [place] [address] from Last [address] [place] [address] García Licea Personal/Family Self [address] [place] [address] [address] [place] [address] García Licea Personal/Family Self [address] [place] [address] [address] [place] [address] García Licea Personal/Family Self [address] [place] [address] [address] [place] [address] García Licea Personal/Family Self [address] [place] [address] [address] [place] [address] García Licea Personal/Family Self [address] [place] [address] [address] [place] [address] García Licea Personal/Family Self [address] [place] [address] [address] [place] [address] García Licea Personal/Family Self 1990 [address] [place] [address] García Licea Personal/Family Self 1990 [address] [place] [address] Care Teams Picker Feeder Relationship Specialty Start Date End Date Name, MD Mich [address] [place] [address] PCP - General 05/31/17 Additional Source Comments The information contained in this document represents components of the legal health record. It is not the complete legal health record.[facility]
--- OUTSIDE RECORDS SUMMARY | 2024-11-16 16:13 | XMS_ITS | Encounter Summary ---
Author Organization [employer] Address [address] [facility] 7 [place] [address] Care Team Providers Care Filtration Operator Name Role Phone Yazmin Boston MD Primary Care Provide r Encounter Details Date Type Department Care Team ([facility] st Contact Info) Description 09/20/2023 Telephone Health Benefits [address] [place] [address] Yazmin Boston MD [address] [place] [address] Social History Tobacco Use Types Packs/Day Years Used Date Smoking Tobacco: Never Passive Smoke Exposure: Never Smokeless Tobacco: Never Alcohol Use Standard Drinks/Week Comments Yes 0 (1 standard drink = 0.6 oz pur e alcohol) Socially Depression Answer Date Recorded Patient Health Questionnaire-9 Score 0 03/07/2023 Housing Stability Answer Date Recorded What is your housing situation today? I have elayne khan 06/10/[address] you li ve. Do you have problems with any of the following? None of the above 06/10/2023 Food Insecurity Answer Date Recorded Within the past 12 months, y ou worried that your food would run out before you got money to buy more: Never True 06/10/2023 Within the past 12 months,th e food you bought just didn't last and you didn't have enough money to get more: Never True Transportation Answer Date Recorded In the past 12 months, has l ack of transportation kept you from medical appts, meetings, work or from getting things needed for daily living? No 06/10/2023 Utilities Answer Date Recorded In the past 12 months, has t he electric, gas, oil or water company threatened to shut off services in your home? No 06/10/2023 Depression Answer Date Recorded Patient Health Questionnaire-2 [...] documented as of this encounter Visit Diagnoses Not on filedocumented in this encounter Additional Health Concerns Assessment Noted Time PHQ-9 Depression Total Score: 0 03/07/20 23 9:52 AM EDT documented as of this encounter Care Teams Filtration Operator Relationship Specialty Start Date End Date Yazmin Boston MD [address] [place] [phone] PCP - General Family Medicine 07/19/19 documented as of this encounter
--- OUTSIDE RECORDS SUMMARY | 2024-11-16 16:13 | XMS_ITS | Encounter Summary ---
Author Organization [employer] Address [address] [facility] 7t [place] [address] Care Team Providers Care County Nurse Name Role Phone Yazmin Boston MD Primary Care Provide r Encounter Details Date Type Department Care Team (Latest Contact Info) Description 11/16/2024 Travel Social History Tobacco Use Types Packs/Day Years [...] Noted Time PHQ-9 Depression Total Score: 18 024 11:27 AM EST documented as of this encounter Care Teams County Nurse Relationship Specialty Start Date End Date Yazmin Boston MD [address] [place] [address] PCP - General Family Medicine 07/19/19 documented as of this encounter
[2024-11-16 16:44] LABS: Alanine Aminotransferase 61 U/L (0-40); Albumin Level 4.3 g/dL (3.5-5.0); Alkaline Phosphatase 41 U/L (39-117); Anion Gap 10 (12-20); Aspartate Amino Transferase 35 U/L (5-37); Bilirubin Total 0.7 mg/dL (0.0-1.0); Blood Urea Nitrogen 12 mg/dL (9-16); Calcium 9.1 mg/dL (8.4-10.2); Carbon Dioxide 24 mmol/L (22-29); Chloride 109 mmol/L (96-108); Cholesterol 181 mg/dL (<200); Estimated Glomerular Filt Rate > 60; Glucose Random 79 mg/dL (60-115); HDL Cholesterol 28 mg/dL (>40); Potassium 3.7 mmol/L (3.3-5.1); Sodium 139 mmol/L (135-145); Total Protein 6.4 g/dL (6.5-8.0); Triglycerides 476 mg/dL (<150)
[2024-11-16 16:55] LABS: Free T4 (Free Thyroxine) 0.96 ng/dL (0.71-1.85)
[2024-11-16 17:00] LABS: TSH reflex Free T4 0.83 uIU/mL (0.32-4.0); Thyroid Stimulating Hormone 0.83 uIU/mL (0.32-4.0)
[2024-11-17 07:03] LABS: Follicle Stimulating Hormone 3.5 mIU/mL (1.4-12.8); Lutenizing Hormone 3.1 mIU/mL (1.5-9.3); Sex Hormone Binding Globulin 14 nmol/L (10-50)
[2024-11-23 16:13] LABS: Testosterone, Free 83.8 pg/mL (35.0-155.0); Testosterone, Total 345 ng/dL (250-1100)
== END 2024-11-16 14:40 | disposition home or self-care (01) ==
LOC: HO.HHCL 14:39
PROVIDERS: Nurse Practitioner Family; Visit Provider Internal Medicine
DX: E78.1 Pure hyperglyceridemia (principal); E66.811 Obesity, class 1; E66.09 Other obesity due to excess calories; R68.82 Decreased libido; Z68.34 Body mass index [BMI] 34.0-34.9, adult
CPT/HCPCS: 36415; 80053; 80061; 83001; 83002; 84146; 84270; 84402; 84403; 84439; 84443

== ENCOUNTER 2024-12-26 09:12 | Outpatient (REF) | payer MEDICAID, SELFPAY ==
--- NOTE | ~2024-12-26 | US_ITS ---
EXAMINATION: US ABDOMEN HISTORY: Elevated LFTs TECHNIQUE: Real-time grayscale ultrasound imaging of the abdomen was performed and images were reviewed. COMPARISON: There are no prior studies for comparison. FINDINGS: Liver: The right lobe of the liver measures 17.3 cm in size. The left lobe of the liver measures 12.2 cm in size. The liver demonstrates increased echotexture, consistent with steatosis. No focal mass or intrahepatic biliary ductal dilatation is identified. There is normal hepatopedal flow in the portal vein. Gallbladder and biliary tree: The gallbladder is unremarkable, without evidence of calculi, wall thickening, or pericholecystic fluid. There is no sonographic Hidalgo sign. The common bile duct is normal in caliber measuring 5 mm. Kidneys: The right kidney measures 11.7 cm in length. The left kidney measures 12.5 cm in length. The kidneys are unremarkable, without evidence of masses, hydronephrosis, or calculi. Pancreas: The pancreatic head, neck, and body are unremarkable. The pancreatic tail is obscured by bowel gas. Spleen: The spleen is normal in size and contour, measuring 12.2 cm in length. Abdominal aorta and inferior vena cava: The visualized portions of the abdominal aorta and inferior vena cava are normal in caliber. There is no free fluid in the abdomen. US/US abdomen complete IMPRESSION: Hepatomegaly and hepatic steatosis. Electronically signed by: Elgin Uriostegui MD 12/26/2024 09:50 AM EDT
--- OUTSIDE RECORDS SUMMARY | 2024-12-26 09:40 | XMS_ITS | Encounter Summary ---
Author Organization [employer] Address [address] [facility] 7t [place] [address] Care Team Providers Care Carpenter Supervisor Name Role Phone Yazmin Boston MD Primary Care Provide r Encounter Details Date Type Department Care Team ([facility] st Contact Info) Description 09/20/2023 Telephone Health Benefits [address] [place] [address] Yazmin Boston MD [address] [place] [address] Social History Tobacco Use Types Packs/Day Years [...] as of this encounter Plan of Treatment Upcoming Encounters Date Type Department Care Team (Late st Contact Info) Description 12/28/2024 10:45 AM EDT Office Visit [facility] MEDICINE [address] [place] [address] Pam Reeves MD [address] [place] [address] 12/28/2024 1:00 PM EDT Nutrition [facility] DIABETES/NUTRITION [address] [place] [address] Soo Scanlon, RD [address] [place] [address] documented as of this encounter Visit Diagnoses Not on filedocumented in this encounter Additional Health Concerns Assessment Noted Time PHQ-9 Depression Total Score: 0 03/07/20 23 9:52 AM EDT documented as of this encounter Care Teams Carpenter Supervisor Relationship Specialty Start Date End Date Yazmin Boston MD [address] [place] [phone] PCP - General Family Medicine 07/19/19 documented as of this encounter
--- OUTSIDE RECORDS SUMMARY | 2024-12-26 09:40 | XMS_ITS | Encounter Summary ---
Author Organization [employer] Address [address] [place] [address] 7t [place] [address] Care Team Providers Care Director Corporate Security Name Role Phone Yazmin Boston MD Primary Care Provide r Encounter Details Date Type Department Care Team (Latest Contact Info) Description 03/18/2023 Orders Only [facility] MEDICINE [address] [place] [address] [phone] Yazmin Boston MD [address] [place] [address] [phone] Hypertriglyceridemia (Primary Dx) Social History Tobacco Use [...] Description 12/28/2024 10:45 AM EDT Office Visit [facility] MEDICINE [address] [place] [phone] Pam Reeves MD [address] [place] [address] [phone] 12/28/2024 1:00 PM EDT Nutrition [facility] DIABETES/NUTRITION [address] [place], [place] [phone] Soo Scanlon RD [address] [place], [place] [phone] documented as of this encounter Visit Diagnoses Diagnosis Hypertriglyceridemia- Primary Pure hyperglyceridemia documented in this encounter Additional Health Concerns Assessment Noted Time PHQ-9 Depression Total Score: 0 03/07/20 23 9:52 AM EDT documented as of this encounter Care Teams Director Corporate Security Relationship Specialty Start Date End Date Yazmin Boston MD [address] [place], [place] [phone] PCP - General Family Medicine 07/19/19 documented as of this encounter
--- OUTSIDE RECORDS SUMMARY | 2024-12-26 09:40 | XMS_ITS | Clinical Summary ---
Author Organization [email or web address] Address [address] [place] [address] 7t [place] [address] Care Team Providers Care Watch Inspector Name Role Phone Yazmin Boston MD Primary Care Provide r Allergies No known active allergies Medications Adderall XR 30 MG 24 hr capsule TAKE 1 CAPSULE BY MOUTH EVERY MORNING FOR ADD 12/22/2022 Active cholecalciferol (Vitamin D-3) 125 MCG (5000 UT) capsule Take 125 mcg by mouth in the morning. 11/24/2022 Active hydrOXYzine HCl (Atarax) 10 MG tablet TAKE 1-2 TABLETS BY MOUTH TWICE A DAY NEEDED FOR ANXIETY 11/13/2022 Active Fanapt 12 MG tablet Take 12 mg by mouth at bedtime. 11/29/2022 Active Fanapt 8 MG tablet Take 8 mg by mouth in the morning. 12/14/2022 Active LORazepam (Ativan) 0.5 MG tablet Take 0.5 mg by mouth if needed in the morning, at noon, and at bedtime. 11/23/2022 Active OLANZapine (ZyPREXA) 2.5 MG tablet Take 1 tablet by mouth at bedtime. 10/19/2022 Active propranolol LA (Inderal LA) 60 MG 24 hr capsule TAKE 1 CAPSULE BY MOUTH EVERY DAY IN THE MORNING 12/21/2022 Active tadalafil (Cialis) 5 MG tablet TAKE 1 TABLET BY MOUTH ONCE DAILY FOR SEXUAL ACTIVITY 12/22/2022 Active Blood Pressure Monitor kit Use as directed 3x/week 1 kit 01/04/2023 Active fenofibrate micronized (Antara) 43 MG capsuleIndicati ons:Hypertrigly ceridemia Take 1 capsule (43 mg) by mouth with breakfast. 30 capsule 3 11/16/2024 11/17/19 26 Active simethicone (Mylicon,Gas-X) 180 MG capsuleIndicati ons:Bloating Take 1 capsule (180 mg) by mouth every 6 (six) hours if needed for flatulence. 180 capsule 11/16/2024 Active famotidine (Pepcid) 20 MG tabletIndicatio ns:Bloating Take 1 tablet (20 mg) by mouth 2 times daily. 60 tablet 1 11/16/2024 11/17/19 26 Active Active Problems Problem Noted Date Diagnosed Date Class 1 obesity due to exces s calories without serious comorbidity with body mass index (BMI) of 34.0 to 34.9 in adult 11/16/2024 Assessment & Plan (11/16/2024 4:36 PM EDT): Extensive counseling about healthy diet and exercise on today I will refer patient to screening unit registered nurse Blood work will be ordered patient will be contacted with results Bloating 11/16/2024 Dermatitis 08/02/2024 Elevated LFTs 08/02/2024 [...] Encounters Date Type Department Care Team Description 11/19/2024 Telephone [facility] [place] [address] Yazmin Boston MD Results 11/16/2024 2:00 PM EDT Office Visit [address] [address] Yazmin Boston MD Hypertriglyceridemia (Primary Dx); Class 1 obesity due to excess calories without serious comorbidity with body mass index (BMI) of 34.0 to 34.9 in adult; Bloating 11/16/2024 Orders Only [address] [address] Yazmin Boston MD Elevated LFTs (Primary Dx) 11/16/2024 Travel 11/08/2024 Patient Outreach [address] [address] Yazmin Boston MD Pre-visit Planning (SDOH screening negative and tobacco screening negative) 10/31/[address] [address] Lucy Murdock RN NTTS f/up 10/26/2024 Population Health Risk Score [facility] (C3) Department [address] [place] [phone] Provider, Population Health Generic 10/05/[address] [address] Yazmin Boston MD NTTS from Last 3 Months Immunizations Immunization Administration Dates Next Due Hep B Immune [...] 11/16/2024 2:13 PM EDT Plan of Treatment Upcoming Encounters Date Type Department Care Team (Late st Contact Info) Description 12/28/2024 10:45 AM EDT Office Visit [facility] MEDICINE [address] [place], [place] [phone] Pam Reeves MD [address] [place] [address] 12/28/2024 1:00 PM EDT Nutrition [facility] DIABETES/NUTRITION [address] [place], [place] [phone] Soo Scanlon RD [address] [place] [address] Health Maintenance Due Date Last Done Comments Alcohol/Substance Use Screening 2001 Family Planning (PISQ) 2004 Hepatitis B Vaccines (2 of 3 - 19+ 3-dose series) 04/26/2023 03/29/2023 Depression Screening 06/28/2025 06/28/2024, 06/28/20 24 SDOH Screening 11/08/2025 11/08/2024 Tobacco Screening 11/16/2025 11/16/2024 DTaP/Tdap/Td Vaccines (2 - Td or Tdap) 06/20/2027 06/20/2017 Lipid Panel 11/16/2029 11/16/2024, 06/15, 06/20/2023, Additional history exists Zoster Vaccines (1 of [...] patient's age to complete this topic Meningococcal B Vaccine Aged Out No l onger eligible based on patient's age to complete [...] Procedure Name Priority Date/Time Associated Diagnosis Comments TESTOSTERONE, FREE (DIALYSIS) AND TOTAL,MS Routine 11/16/2024 2:42 PM EDT Elevated LFTs SEX HORMONE BINDING GLOBULIN Routine 11/16/2024 2:42 PM EDT Elevated LFTs PROLACTIN Routine 11/16/2024 2:42 PM EDT Elevated LFTs LH Routine 11/16/2024 2:42 PM EDT Elevated LFTs FSH Routine 11/16/2024 2:42 PM EDT Elevated LFTs TSH Routine 11/16/2024 2:42 PM EDT Elevated LFTs T4, FREE Routine 11/16/2024 2:42 PM EDT Elevated LFTs LIPID PANEL, STANDARD Routine 11/16/2024 2:42 PM EDT Hypertriglyceridemi a Class 1 obesity due to excess calories without serious comorbidity with body mass index (BMI) of 34.0 to 34.9 in adult COMPREHENSIVE METABOLIC PANEL Routine 11/16/2024 2:42 PM EDT Hypertriglyceridemi a Class 1 obesity due to excess calories without serious comorbidity with body mass index (BMI) of 34.0 to 34.9 in adult TSH W/REFLEX TO FT4 Routine 11/16/2024 2 :42 PM EDT Class 1 obesity due to excess calories without serious comorbidity with body mass index (BMI) of 34.0 to 34.9 in adult HEPATITIS C AB W/REFL TO HCV RNA, QN, PCR Routine 06/25/2024 4:15 PM EST Encounter for preventive care HIV 1/2 ANTIGEN/ANTIBODY, FOURTH GENERATION W/RFL Routine 06/25/2024 4:15 PM EST Encounter for preventive care from Last 3 Months or Most Recently Relevant to Health Maintenance Results * TSH W/Reflex to FT4 (11/16/2024 2:42 PM EDT) TSH reflex Free T4 0.83 0.32 - 4.0 uIU/mL [facility] Blood Venous blood specimen / Unknown 11/16/2024 2:42 PM EDT 11/16/2024 4:08 PM EDT us Yazmin Chaparro MD LAB BLOOD ORDERABLES Final Result [facility] [address] [place] [phone] * Sex Hormone Binding Globulin (SHBG) (11/16/2024 2:42 PM EDT) Sex Hormone Binding Globulin 14 10 - 50 nmol/L [facility] Comment:THIS TEST WAS PERFOR MED AT:[facility] [place] [phone] BLANCHARD MD 11/16/2024 2:42 PM EDT 11/16/2024 4:08 PM EDT us Generic External Data Provider LAB BLOOD ORDERAB LES Final Result Performing Organization Address City/[facility]/ZIP Co de Phone Number [facility] [address] [place] [phone] * Prolactin (11/16/2024 2:42 PM EDT) Prolactin 6.0 2.0 - 18.0 ng/mL [facility] Comment:THIS TEST WAS PERFOR MED AT:[facility] [place] [phone] BLANCHARD MD 11/16/2024 2:42 PM EDT 11/16/2024 4:08 PM EDT Generic External Data Provider LAB BLOOD ORDERAB LES Final Result Performing Organization Address [facility] Co de Phone Number [facility] [address] [place] [address] [phone] * Testosterone, Free (Dialysis) And Total, MS (11/16/2024 2:42 PM EDT) Testosterone, Total 345 250 - 1100 ng/dL [facility] Comment:Men with clinically significant hypogonadal symptoms and testosterone valuesrepeatedly in the range of the 200-300 ng/dL or less, may benefit fromtestosterone treatment after adequate risk and benefits counseling.For additional information, please refer [email or web address](This link is being provided for informational/educational purposes only.)(Note)This test was developed and its analytical performancecharacteristics have been determined by [employer]. It hasnot been cleared or approved by the FDA. This assay hasbeen validated pursuant to the CLIA regulations and isused for clinical purposes. Testosterone, Free 83.8 35.0 - 155.0 pg/mL [facility] Comment:(Note)This test was developed and its analytical performancecharacteristics have been determined by [employer]. It hasnot been cleared or approved by the FDA. This assay hasbeen validated pursuant to the CLIA regulations and isused for clinical purposes.[facility]Fmed [id number] [address],[address] [place] [address] [phone] Tashi Braga MD, PhDTHIS TEST WAS PERFORMED AT:[id number] [place] [address] [place] [phone] BRAGA MD,PHD 11/16/2024 2:42 PM EDT 11/16/2024 4:08 PM EDT us Generic External Data Provider LAB BLOOD ORDERAB LES Final Result Performing Organization Address [facility] Co de Phone Number [facility] [address] [place] [place] [phone] * TSH (11/16/2024 2:42 PM EDT) Thyroid Stimulating Hormone 0.83 0.32 - 4.0 uIU/mL [facility] Comment:TSH 3rd Generation ( [facility]) 11/16/2024 2:42 PM EDT 11/16/2024 4:08 PM EDT us Generic External Data Provider LAB BLOOD ORDERAB LES Final Result Performing Organization Address [facility] Co de Phone Number [facility] [address] [place] [phone] * T4, Free (11/16/2024 2:42 PM EDT) Free T4 (Free Thyroxine) 0.96 0.71 - 1.85 ng/dL [facility] 11/16/2024 2:42 PM EDT 11/16/2024 4:08 PM EDT Generic External Data Provider LAB BLOOD ORDERAB LES Final Result Performing Organization Address [facility]/ZIP Co de Phone Number [facility] [address] [place] [phone] * LH (11/16/2024 2:42 PM EDT) Lutenizing Hormone 3.1 1.5 - 9.3 mIU/mL [facility] Comment:THIS TEST WAS PERFOR MED AT:[facility] [address] [phone] BLANCHARD MD 11/16/2024 2:42 PM EDT 11/16/2024 4:08 PM EDT Generic External Data Provider LAB BLOOD ORDERAB LES Final Result Performing Organization Address [facility]/ZIP Co de Phone Number [facility] [address] [place] [phone] [phone] * FSH (11/16/2024 2:42 PM EDT) Follicle Stimulating Hormone 3.5 1.4 - 12.8 mIU/mL [facility] Comment:THIS TEST WAS PERFOR MED AT:[facility] [address] [phone] BLANCHARD MD 11/16/2024 2:42 PM EDT 11/16/2024 4:08 PM EDT us Generic External Data Provider LAB BLOOD ORDERAB LES Final Result Performing Organization Address [facility]/ZIP Co de Phone Number [facility] [address] [place] [phone] * (ABNORMAL) Lipid Panel, Standard (11/16/2024 2:42 PM EDT) Triglycerides 476(H) <150 mg/dL [facility] Comment:Desirable Triglyceri de: less than 150 mg/dLBorderline High Triglyceride 150-199 mg/dLHigh Triglyceride: 200-499 mg/dLVery High Triglyceride: greater than or equal to 5OO mg/dL Cholesterol 181 <200 mg/dL [facility] Comment:Desirable Cholestero l: less than 200 mg/dLBorderline High Cholesterol: 200-239 mg/dLHigh Cholesterol: greater than 239 mg/dL LDL Cholesterol Calculated TNP <100 mg/dL [facility] Comment:Unable to calculate the LDL. The formula of Friedwald,Lewis, and Feroz is only valid if the triglycerides areless than 400 mg/dl. HDL Cholesterol 28(L) >40 mg/dL [facility] Comment:Desirable HDL: great er than 40 mg/dL Note: This HDL assay may give artificially low results in patients with liver disease. Blood Venous blood specimen / Unknown 11/16/2024 2:42 PM EDT 11/16/2024 4:08 PM EDT us Yazmin Chaparro MD LAB BLOOD ORDERABLES Final Result [facility] [address] [place] [phone] * (ABNORMAL) Comprehensive Metabolic Panel (11/16/2024 2:42 PM EDT) Sodium 139 135 - 145 mmol/L [facility] Potassium 3.7 3.3 - 5.1 mmol/L [facility] Chloride 109(H) 96 - 108 mmol/L [facility] Carbon Dioxide 24 22 - 29 mmol/L [facility] Anion Gap 10(L) 12 - 20 [facility] Urea Nitrogen (BUN) 12 9 - 16 mg/dL [facility] Creatinine, Serum 1.02 0.5 - 1.4 mg/dL [facility] Estimated Glomerular Filt Rate >60 [facility] Comment:Chronic Kidney Disea se: Estimated GFR < 60 mL/min/1.66y1Cfgfct Kidney Disease: Estimated GFR < 15 mL/min/1.73m2 Glucose 79 60 - 115 mg/dL [facility] Calcium 9.1 8.4 - 10.2 mg/dL [facility] Bilirubin, Total 0.7 0.0 - 1.0 mg/dL [facility] Aspartate Amino Transferase 35 5 - 37 U/L [facility] Alanine Aminotransferase 61(H) 0 - 40 U/L [facility] Total Protein 6.4(L) 6.5 - 8.0 g/dL [facility] Albumin Level 4.3 3.5 - 5.0 g/dL [facility] Alkaline Phosphatase 41 39 - 117 U/L [facility] Blood Venous blood specimen / Unknown 11/16/2024 2:42 PM EDT 11/16/2024 4:08 PM EDT Yazmin Chaparro MD LAB BLOOD ORDERABLES Final Result Performing Organization Address [facility] Co de Phone Number [facility] [address] [place] [phone] * Hepatitis C Antibody with Reflex to HCV, RNA, Quantitative, Real-Time PCR (06/25/2024 4:15 PM EST) Hepatitis C Antibody Nonreactive Nonreactive [facility] Comment:Antibodies to HCV no t detected; does not exclude early acuteHCV infection. Blood Venous blood specimen / Unknown 06/25/2024 4:15 PM EST 06/25/2024 5:12 PM EST us Yazmin Chaparro MD LAB BLOOD ORDERABLES Final Result Performing Organization Address [facility] Co de Phone Number [facility] [address] [place] [phone] * HIV-1/2 Antigen and Antibodies, Fourth Generation, with Reflexes (06/25/2024 4:15 PM EST) HIV AB/AG Nonreactive Nonreactive [facility] Comment:HIV-1 p24 Ag and/or HIV-1/HIV-2 Ab not detected.A test result that is nonreactive does not exclude thepossibility of exposure to or infection with HIV-1 and/orHIV-2. Nonreactive results in this assay for individualswith prior exposure to HIV-1 and/or HIV-2 may be due toantigen and antibody levels that are below the limit ofdetection of this assay.The [employer] HIV Ag/Ab Combo assay result andsupplemental assay results should be interpreted inconjunction with the patient's clinical presentation,history and other laboratory results. If the results areinconsistent with clinical evidence, additional testing issuggested to confirm the result. Blood Venous blood specimen / Unknown 06/25/2024 4:15 PM EST 06/25/2024 5:12 PM EST us Yazmin Chaparro MD LAB BLOOD ORDERABLES Final Result [facility] [address] [place] [phone] from Last 3 Months or Most Recently Relevant to Health Maintenance Insurance [facility] C3 HSN FULL Care Teams Watch Inspector Relationship Specialty Start Date End Date Yazmin Boston MD [address] [place] [phone] PCP - General Family Medicine 07/19/19
--- OUTSIDE RECORDS SUMMARY | 2024-12-26 09:40 | XMS_ITS | Clinical Summary ---
Author Organization [facility] Address [address] [facility] [place] [address] Care Team Providers Care Automotive Parts Salesperson Name Role Phone Unavailable Primary Care Provider [...] Adults 18 yrs or above (or HM Modifier)([facility]) 2007 Hepatitis C Virus Infection in Adolescents and Adults: Screening (or Modifier) ([facility]) 2007 SDOH Screening Reminder: Jhoana tashalljuanita for all adults ([facility]) 2007 Tobacco Smoking Cessation: i n Adults excluding Women: Behavioral and Pharmacotherapy Interventions ([facility]) 2007 DTaP/Tdap/Td Vaccines ([facility]) (1 - Tdap) 2008 Lipid Screening: Once for Me n aged 20 to 35 yrs ([facility]) 2009 COVID-19 Vaccine Screening: Initial Series and Booster Status ([facility]) ( - 2023- season) 2024 Flu Vaccination: Yearly for ages 18mos through 64 years (or Modifier)([facility]) 03/15/2025 Zoster/Shingles Vaccine Seri es Screening: Adults aged 18+ yrs (or HM Modifiers)([facility]) (1 of 2) 2039 Pneumococcal Vaccination Scr eening: Pts 0-19 & 19-49 yrs of age ([facility]) Aged Out No longer eligible based on patient's age to complete this topic Medical Devices Not on file Insurance [facility]
== END 2024-12-26 09:13 | disposition home or self-care (01) ==
LOC: HO.US 09:12
PROVIDERS: PCP Internal Medicine; Visit Provider Internal Medicine
DX: R79.89 Other specified abnormal findings of blood chemistry (principal)
CPT/HCPCS: 76700

== ENCOUNTER → 2024-12-26 09:14 | Outpatient (BNV) | payer MEDICAID, SELFPAY | PROVIDERS: PCP Internal Medicine; Visit Provider Radiology Diagnostic Radiology | DX: R16.0 Hepatomegaly, not elsewhere classified (principal) | CPT/HCPCS: 76700 ==